=== PATIENT | male | born 2005 | race Caucasian/White ===

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

== ENCOUNTER 2024-04-19 14:43 | Outpatient (CLI) | payer MEDICAID | END 2024-04-19 23:59 | disposition home or self-care (01) | LOC: RAD 14:43 | PROVIDERS: ATTEND Nurse Practitioner | DX: M54.2 Cervicalgia (principal) | CPT/HCPCS: 72040 ==